=== PATIENT | male | born 1990 | race Caucasian/White ===

== ENCOUNTER 2024-08-24 13:35 | Emergency (ER) | payer OTHER ==
--- NOTE | 2024-08-24 14:16 | ED ---
General Adult HPI - General Source: patient, RN notes reviewed Mode of arrival: ambulatory Limitations: no limitations <Arun Tapia - Last Filed: 08/24/24 14:04> <Tim Cast - Last Filed: 08/24/24 20:03> - General Chief complaint: Psychiatric Symptoms Stated complaint: Mental health eval Time Seen by Provider: 08/24/24 13:56 - History of Present Illness Initial comments: Patient is a 34-year-old male present to the emergency department with depression. Patient does have some longstanding depression however has been having suicidal thoughts the last couple weeks with plan. Patient does normally drink heavy, none today. No street drugs other than marijuana use. Poor sleep habits. Poor eating habits. No homicidal thoughts. No hallucinations. No new physical complaints. (Arun Tapia) - Related Data Allergies Allergy/AdvReac Type Severity Reaction Status Date / Time No Known Allergies Allergy Verified 08/24/24 19:19 Review of Systems ROS Other: All systems not noted in ROS Statement are negative. Constitutional: Denies: fever Eyes: Denies: eye pain ENT: Denies: ear pain Respiratory: Denies: cough Cardiovascular: Denies: chest pain Endocrine: Denies: fatigue Gastrointestinal: Denies: abdominal pain Psychiatric: Reports: as per HPI, depression, suicidal thoughts <Arun Tapia - Last Filed: 08/24/24 14:04> ROS Other: All systems not noted in ROS Statement are negative. <Tim Cast - Last Filed: 08/24/24 20:03> ROS Statement: Those systems with pertinent positive or pertinent negative responses have been documented in the HPI. Past Medical History Past Medical History: No Reported History History of Any Multi-Drug Resistant Organisms: None Reported Past Surgical History: No Surgical Hx Reported Past Psychological History: Anxiety, Depression, PTSD Smoking Status: Never smoker Past Alcohol Use History: Abuse Past Drug Use History: Marijuana <Arun Tapia - Last Filed: 08/24/24 14:04> General Exam Limitations: no limitations General appearance: alert, in no apparent distress Head exam: Present: normocephalic Eye exam: Present: normal appearance Neck exam: Present: normal inspection Respiratory exam: Present: normal lung sounds bilaterally Cardiovascular Exam: Present: regular rate, normal rhythm GI/Abdominal exam: Present: soft. Absent: tenderness Extremities exam: Present: normal inspection Neurological exam: Present: alert Psychiatric exam: Present: depressed Skin exam: Present: normal color <Arun Tapia - Last Filed: 08/24/24 14:04> Course Vital Signs 08/24/24 13:48 Temperature 98 F Pulse Rate 69 Respiratory 16 Rate Blood Pressure 139/86 O2 Sat by Pulse 95 Oximetry Medical Decision Making <Willy Caste - Last Filed: 08/24/24 20:03> - Medical Decision Making Was pt. sent in by a medical professional or institution ([facility] Reagan, SUPERVISOR ESTIMATOR [employer]RAFTER, urgent care, hospital, or retirement...) When possible be specific @ -No Did you speak to anyone other than the patient for history (EMS, parent, family, police, friend...)? What history was obtained from this source @ -No Did you review nursing and triage notes (agree or disagree)? Why? @ -I reviewed and agree with nursing and triage notes Were old charts reviewed (outside hosp., previous admission, EMS record, old EKG, old radiological studies, urgent care reports/EKG's, retirement records)? Report findings @ -No old charts were reviewed Differential Diagnosis? @ -Differential Mental Health Depression, anxiety, bipolar, psychosis, schizophrenia, borderline personality, situational depression, adjustment disorder, behavioral disorder, brain tumor, malingering, substance abuse, encephalopathy, medication reaction, dementia, hypothyroidism, degenerative neurologic disorder, lupus.... This is not meant to be all-inclusive list EKG interpreted by me (3pts min.). @ -As above X-rays interpreted by me (1pt min.). @ -None done CT interpreted by me (1pt min.). @ -None done U/S interpreted by me (1pt. min.). @ -None done What testing was considered but not performed or refused? (CT, X-rays, U/S, labs)? Why? @ -None What meds were considered but not given or refused? Why? @ -None Did you discuss the management of the patient with other professionals (professionals i.e. LAE Reagan, SUPERVISOR ESTIMATOR AND [employer]RAFTER, lab, RT, psych nurse, elementary school social worker, stain wiper, teacher, wildlife officer, geriatric case manager)? Give summary @ -EPS evaluated the patient and determined the patient needed to be admitted and [facility]. Was smoking cessation discussed for >3mins.? @ -No Was critical care preformed (if so, how long)? @ -No Were there social determinants of health that impacted care today? How? (Homelessness, low income, unemployed, alcoholism, drug addiction, transportation, low edu. Level, literacy, decrease access to med. care, [place] [facility], rehab)? @ -No Was there de-escalation of care discussed even if they declined (Discuss DNR or withdrawal of care, Hospice)? DNR status @ -No What co-morbidities impacted this encounter? (DM, HTN, Smoking, COPD, CAD, Cancer, CVA, ARF, Chemo, Hep., AIDS, mental health diagnosis, sleep apnea, morbid obesity)? @ -None Was patient admitted / discharged? Hospital course, mention meds given and route, prescriptions, significant lab abnormalities, going to OR and other pertinent info. @ -I interviewed the patient and filled out a clinical CERT because the patient stated he wanted help he was depressed and he was afraid that he might get thoughts of suicide again. Undiagnosed new problem with uncertain prognosis? @ -No Drug Therapy requiring intensive monitoring for toxicity (Heparin, Nitro, Insulin, Cardizem)? @ -No Were any procedures done? @ -No Diagnosis/symptom? @ -Suicidal ideations Acute, or Chronic, or Acute on Chronic? @ -Acute Uncomplicated (without systemic symptoms) or Complicated (systemic symptoms)? @ -Complicate Side effects of treatment? @ -No Exacerbation, Progression, or Severe Exacerbation? @ -No Poses a threat to life or bodily function? How? (Chest pain, USA, PA, pneumonia, PE, COPD, DKA, ARF, appy, cholecystitis, CVA, Diverticulitis, Homicidal, Suic idal, threat to staff... and all critical care pts) @ -Yes this could lead to the patient attempting to harm himself or kill himself Diagnosis/symptom? @ -Depression Acute, or Chronic, or Acute on Chronic? @ -Acute Uncomplicated (without systemic symptoms) or Complicated (systemic symptoms)? @ -Complicated Side effects of treatment? @ -None Exacerbation, Progression, or Severe Exacerbation] @ -No Poses a threat to life or bodily function? @ -No (Tim Cast) - Lab Data Lab Results 08/24/24 Range/Units 15:17 Urine Opiates Screen Not Detected (NotDetected) Ur Oxycodone Screen Not Detected (NotDetected) Urine Methadone Screen Not Detected (NotDetected) Ur Barbiturates Screen Not Detected (NotDetected) U Tricyclic Antidepress Not Detected (NotDetected) Ur Phencyclidine Scrn Not Detected (NotDetected) Ur Amphetamines Screen Not Detected (NotDetected) U Methamphetamines Scrn Not Detected (NotDetected) U Benzodiazepines Scrn Detected H (NotDetected) Urine Cocaine Screen Not Detected (NotDetected) U Marijuana (THC) Screen Detected H (NotDetected) Disposition <Arun Tapia - Last Filed: 08/24/24 14:04> Time of Disposition: 20:03 <Tim Cast - Last Filed: 08/24/24 20:03> Clinical Impression: Depression, Suicidal ideation Disposition: TRANSFER TO PSYCH HOSP/UNIT Referrals: None,Stated [Primary Care Provider] - 1-2 days
[2024-08-24 16:01] LABS: Amphetamine Screen,Urine Not Detected (NotDetected); Barbiturate Screen,Urine Not Detected (NotDetected); Benzodiazepines Screen,Urine Detected (NotDetected); Cocaine Screen,Urine Not Detected (NotDetected); Methadone Screen, Urine Not Detected (NotDetected); Opiate Screen,Urine Not Detected (NotDetected); Oxycodone Screen, Urine Not Detected (NotDetected); Phencyclidine Screen,Urine Not Detected (NotDetected); Tricyclic Antidepressant,Urine Not Detected (NotDetected); Urn Cannabinoid Scrn Detected (NotDetected)
[2024-08-24 21:28] LABS: Basophils % (A) 0 %; Eosinophils # (A) 0.1 k/uL (0-0.7); Eosinophils % (A) 1 %; HCT 45.5 % (39.0-53.0); Lymphocytes # (A) 1.9 k/uL (1.0-4.8); Lymphocytes % (A) 15 %; MCH 31.9 pg (25.0-35.0); MCHC 35.2 g/dL (31.0-37.0); MCV 90.6 fL (80.0-100.0); Mean Platelet Volume 7.8; Monocytes # (A) 0.8 k/uL (0-1.0); Monocytes % (A) 6 %; Neutrophils # (A) 9.7 k/uL (1.3-7.7); Neutrophils % (A) 76 %; Platelet Count 205 k/uL (150-450); RBC 5.03 m/uL (4.30-5.90); RDW 12.1 % (11.5-15.5); WBC 12.7 k/uL (3.8-10.6)
[2024-08-24 21:29] LABS: ALT 51 U/L (4-49); AST 40 U/L (17-59); African American GFR (CKD) >90 (>60 ml/min/1.73 sqM); Albumin 4.5 g/dL (3.5-5.0); Alkaline Phosphatase 78 U/L (38-126); Anion Gap 11 mmol/L; Blood Urea Nitrogen 11 mg/dL (9-20); Calcium 9.5 mg/dL (8.4-10.2); Carbon Dioxide 27 mmol/L (22-30); Chloride 97 mmol/L (98-107); Glucose 124 mg/dL (74-99); Non-African American GFR(CKD) >90 (>60 ml/min/1.73 sqM); Potassium 3.8 mmol/L (3.5-5.1); Sodium 135 mmol/L (137-145); Total Protein 7.5 g/dL (6.3-8.2)
[2024-08-25] MEDS ORDERED: LORazepam 1 MG TAB PO PRN (08:43)
[2024-08-25] MEDS: NICOTINE 14MG/24HR PATCH TRANSDERM STA (09:12)
[2024-08-25] MEDS: THIAMINE 100 MG TAB PO SCH (09:12)
[2024-08-25] MEDS: LORazepam 2 MG/ML INJ IV STA ×3 (09:12→11:31)
[2024-08-26 06:52] VITALS: RESP 18
[2024-08-26] MEDS: LORazepam 1 MG TAB PO PRN ×2 (14:06→21:30)
[2024-08-26] MEDS: NICOTINE 14MG/24HR PATCH TRANSDERM STA (20:35)
[2024-08-27 06:52] VITALS: TEMP 98.9
[2024-08-27] MEDS: KETOROLAC 15 MG/ML 1 ML VIAL IVP STA (13:56)
[2024-08-27] MEDS ORDERED: buPROPion XL 300 MG TAB.ER.24H PO STA (14:59)
[2024-08-27] MEDS: SERTRALINE 50 MG TAB PO SCH (15:30)
[2024-08-27] MEDS: buPROPion XL 150 MG TAB.ER.24H PO SCH (15:30)
[2024-08-27] MEDS: NICOTINE 14MG/24HR PATCH TRANSDERM STA (21:28)
[2024-08-28] MEDS: CALCIUM CARBONATE 500 MG CHEWABLE PO PRN (02:57)
[2024-08-28] MEDS: LORazepam 0.5 MG TAB PO PRN (02:58)
[2024-08-28 11:05] VITALS: BP 105/74; PULSE 70
== END 2024-08-28 11:05 ==
LOC: EC 13:35
DX: F32.A Depression, unspecified (principal); R45.851 Suicidal ideations
CPT/HCPCS: 99285; 96374; 96375; 96376; 82075; 36415; 80053; 85025; 80306; 80320; 87635; S4990 ×3; J2060; J1885